=== PATIENT | male | born 1970 | race Asian ===

== ENCOUNTER 2017-03-11 13:25 | Emergency (ER) | payer OTHER ==
[~2017-03-11] VITALS: Ht 177.8 cm; Wt 68.0 kg
[~2017-03-11 13:25] MED LIST: ASPI81CT89 PO; LISI5TAB18 PO; METF100028 PO; SIMV10TA1 PO
--- NOTE | 2017-03-11 13:25 | NUR ---
Patient was BIB [place] [employer] at this time.
[2017-03-11 13:38] VITALS: BP 118/81
[2017-03-11 13:50] VITALS: BP 118/81
--- NOTE | 2017-03-11 13:50 | NUR ---
Patient discharged with v/s stable. Written and verbal after care instructions given and explained. Patient verbalized understanding. Police with in custody. All questions addressed prior to discharge. Advised to follow up with PMD.
== END 2017-03-11 13:50 ==
LOC: MED 13:25
DX: Z02.89 Encounter for other administrative examinations (principal); F10.129 Alcohol abuse with intoxication, unspecified; E11.9 Type 2 diabetes mellitus without complications; I10 Essential (primary) hypertension
CPT/HCPCS: 82948; 99283

== ENCOUNTER 2017-07-16 01:40 | Inpatient (IN) | payer OTHER ==
[~2017-07-16] VITALS: Ht 175.3 cm; Wt 66.7 kg
--- NOTE | 2017-07-16 01:48 | NUR ---
BIBA TO ER BED OF4
--- NOTE | 2017-07-16 01:50 | NUR ---
47Y M TRICE A 5150 PT. [facility] PLACED PT ON 5150 HOLD. ACCORDING TO PD PT CALLED HIS ALCOHOL ANONYMOUS MENTOR AND ASKED HIM TO KILL HIM. PT ARRIVED AT [facility] AGGITATED, UNCOOPERATIVE AND ANXIOUS. PT DENIES ANY N/V/D, SOB, CP AT THE MOMENT. MICK KOTHARI MADE AWARE
[2017-07-16 01:58] VITALS: BP 110/72
[2017-07-16] MEDS ORDERED: HALOPERIDOL IM 5 MG/ML VIAL IM ONE (02:10)
--- NOTE | 2017-07-16 02:15 | NUR ---
PATIENT APPEARS TO BE AWAKE, CRYING OUT FOR , ANXIOUS AND AGITATED. UNCOOPERATIVE WHEN PT FIRST ARRIVED AT [facility].
[2017-07-16 02:17] LABS: BASOPHILS # (AUTO) 0.3 K/uL (0.00-0.22); BASOPHILS % (AUTO) 4.8 % (0.0-2.0); EOSINOPHILS # (AUTO) 0.1 K/uL (0-0.4); EOSINOPHILS % (AUTO) 1.2 % (0.0-4.0); HEMATOCRIT 36.2 % (36-52); HEMOGLOBIN 11.7 g/dL (12.0-18.0); LYMPHOCYTES # (AUTO) 3.3 K/uL (2.0-11.5); LYMPHOCYTES % (AUTO) 45.9 % (20.5-51.1); MEAN CORPUSCULAR HEMOGLOBIN 30 pg (27-31); MEAN CORPUSCULAR HGB CONC 32 g/dL (33-37); MEAN CORPUSCULAR VOLUME 93 fL (80-94); MONOCYTES # (AUTO) 0.4 K/uL (0.8-1.0); MONOCYTES % (AUTO) 6.2 % (1.7-9.3); NEUTROPHILS # (AUTO) 2.9 K/uL (1.8-7.7); NEUTROPHILS % (AUTO) 41.9 % (42.2-75.2); PLATELET COUNT (AUTO) 261 K/uL (140-450); RED CELL DISTRIBUTION WIDTH 15.4 % (11.6-13.7)
[2017-07-16 02:18] LABS: APPEARANCE,URINE CLEAR (CLEAR); BILIRUBIN,URINE NEGATIVE (NEGATIVE); BLOOD, URINE NEGATIVE (NEGATIVE); COLOR,URINE YELLOW (YELLOW); LEUKOCYTE ESTERASE ,URINE NEGATIVE (NEGATIVE); NITRITE, URINE NEGATIVE (NEGATIVE); PH,URINE 5.5 (5.0-9.0); UGLUCOSE NEGATIVE (NEGATIVE)
[2017-07-16 02:25] LABS: BARBITURATE, URINE NEG. ng/ml (NEG <=200); BENZODIAZEPINE, URINE NEG. ng/mL (NEG <=200); CANNABINOID, URINE NEG. ng/mL (NEG <=50); COCAINE, URINE NEG. ng/mL (NEG <=300); OPIATE, URINE NEG. ng/mL (NEG <=2000); PHENCYCLIDINE SCREEN,URINE NEG. ng/mL (NEG <=25)
[2017-07-16 02:26] LABS: ANION GAP 15.3 (8-16); CARBON DIOXIDE 26.9 mmol/L (21-32); CHLORIDE 105 mmol/L (98-107); CREATININE 1.1 mg/dL (0.7-1.3); GFR ARICAN-AMERICAN 93 mL/min (>90); GLUCOSE 114 mg/dL (74-106); POTASSIUM 4.2 mmol/L (3.5-5.1); SODIUM SERUM 143 mmol/L (136-145); UREA NITROGEN, BLOOD 11 mg/dL (7-18)
[2017-07-16 02:34] LABS: ALBUMIN 4.2 g/dL (3.4-5.0); ASPARTATE AMINOTRANSFERASE 17 U/L (15-37); TOTAL BILIRUBIN 0.2 mg/dL (0.0-1.0)
[2017-07-16 02:38] LABS: SALICYLATE < 2.8 mg/dL (2.8-20.0)
[2017-07-16 02:40] LABS: ACETAMINOPHEN < 0.5 ug/ml (10-30)
[2017-07-16] MEDS ORDERED: LORazepam 2 MG/ML VIAL IM ONE (02:40)
[2017-07-16] MEDS ORDERED: NACL 0.9% 2,000 ML IV ONE (02:55)
--- NOTE | 2017-07-16 03:15 | NUR ---
PATIENT APPEARS TO BE RESTING COMFORTABLY AT THIS TIME. NO DISTRESS AT THIS TIME.
--- NOTE | 2017-07-16 04:15 | NUR ---
PATIENT APPEARS TO BE RESTING COMFORTABLY AT THIS TIME. NO DISTRESS NOTED AT THIS TIME.
--- NOTE | 2017-07-16 05:15 | NUR ---
PATIENT APPEARS TO BE RESTING COMFORTABLY AT THIS TIME. NO DISTRESS AT THIS TIME.
--- NOTE | 2017-07-16 05:53 | NUR ---
SI PAPERWORK COMPLETED AND IN PLACED IN PT CHART.
--- NOTE | 2017-07-16 05:54 | NUR ---
MOVED TO ER BED 3
--- NOTE | 2017-07-16 06:15 | NUR ---
Patient appears to be resting comfortably in bed. Vital Signs within normal limits. Respirations even and unlabored.
--- NOTE | 2017-07-16 07:05 | NUR ---
Pt report given to HELEN SELLERS. Transfer of care at this time.
--- NOTE | 2017-07-16 07:10 | NUR ---
received report from carola inman. pt resting in [facility]. nad. suicidial precaution in place.
--- NOTE | 2017-07-16 08:00 | NUR ---
Patient resting with eyes closed in [place]. Vital Signs within normal limits. Respirations even and unlabored. Suicidial precautions in place.
[2017-07-16] MEDS ORDERED: NACL 0.9% 1,000 ML IV SCH (08:39)
[2017-07-16] MEDS ORDERED: HYDROcodone/APAP 7.5/325 MG 1 TAB PO PRN (08:40)
[2017-07-16] MEDS ORDERED: ONDANSETRON 4 MG/2 ML VIAL IVP PRN (08:40)
[2017-07-16] MEDS ORDERED: ACETAMINOPHEN 325 MG TAB PO PRN (08:40)
[2017-07-16] MEDS: DOCUSATE SODIUM 100 MG GELCAP PO SCH ×2 (09:00→20:38)
[2017-07-16] MEDS: FOLIC ACID 1 MG TAB PO SCH (09:00)
[2017-07-16] MEDS: MULTIVITAMIN 1 TAB PO SCH (09:00)
[2017-07-16] MEDS: THIAMINE 100 MG TAB PO SCH (09:00)
--- NOTE | 2017-07-16 09:00 | NUR ---
Patient resting [place] eyes [place]. Vital Signs within normal limits. Respirations even and unlabored. Suicidial precautions in place.
--- NOTE | 2017-07-16 09:30 | NUR ---
CALLED PHARMACY FOR PO MEDS FOR PT; WILL FOLLOW UP
[2017-07-16 09:37] LABS: CHOL/HDL RATIO 1.7 (1-4.5); FREE T4 (FREE THYROXINE) 0.75 ng/dL (0.76-1.46); THYROID STIMULATING HORMONE 2.05 uIU/mL (0.34-3.74)
--- NOTE | 2017-07-16 09:58 | NUR ---
ADMINISTERED IVF OF NS 0.9% AT A RATE OF 50 CC/ML PER MD ORDER ON EMAR; UNABLE TO DOCUMATE IN EMAR; MD FINN NOTIFIED AND AWARE; WILL CONTINUE TO MONITOR
--- NOTE | 2017-07-16 10:00 | NUR ---
PT REFUSING PO MEDS; PT STATES "LEAVE ME THE FUCK ALONE"; MD FINN NOTIFIED AND AWARE WILL CONTINUE TO MONITOR; RR ARE EVEN AND UNLABORED; NAD; VSS
--- NOTE | 2017-07-16 10:01 | NUR ---
Patient resting with eyes closed in [place]. Vital Signs within normal limits. Respirations even and unlabored. Suicidial precautions in place.
[2017-07-16] MEDS ORDERED: DEXTROSE 50% 50 ML SYR IVP PRN (10:05)
[2017-07-16] MEDS ORDERED: INSULIN LISPRO SLIDING SCALE 100 UNITS/ML VIAL SUBQ PRN (10:05)
--- NOTE | 2017-07-16 10:05 | NUR ---
MD FINN AND MD THORPE BY BEDSIDE EXAMINING PT
--- NOTE | 2017-07-16 11:00 | NUR ---
Patient resting with eyes closed in [place]. Vital Signs within normal limits. Respirations even and unlabored. Suicidial precautions in place.
--- NOTE | 2017-07-16 12:00 | NUR ---
Patient resting [place] eyes [place] in [place]. Vital Signs within normal limits. Respirations even and unlabored. Suicidial precautions in place.
--- NOTE | 2017-07-16 13:00 | NUR ---
PATIENT APPEARS TO BE RESTING COMFORTABLY AT THIS TIME. NO DISTRESS AT THIS TIME. SUICIDIAL PRECAUTIONS IN PLACE. NAD. WILL CONTINUE TO MONITOR
--- NOTE | 2017-07-16 13:30 | NUR ---
PT GIVEN 1MG OF ATIVAN PO PER MD ORDER; UNABLE TO CHART IN EMAR
[2017-07-16] MEDS ORDERED: LORazepam 1 MG TAB ONE (13:38)
--- NOTE | 2017-07-16 14:00 | NUR ---
PATIENT APPEARS TO BE RESTING COMFORTABLY AT THIS TIME. NO DISTRESS AT THIS TIME. SUICIDIAL PRECAUTIONS IN PLACE. NAD. WILL CONTINUE TO MONITOR
[2017-07-16] MEDS ORDERED: LORazepam 2 MG/ML VIAL IVP PRN (14:34)
--- NOTE | 2017-07-16 15:00 | NUR ---
PATIENT APPEARS TO BE RESTING COMFORTABLY AT THIS TIME. NO DISTRESS AT THIS TIME. SUICIDIAL PRECAUTIONS IN PLACE. NAD. WILL CONTINUE TO MONITOR
--- NOTE | 2017-07-16 15:11 | NUR ---
Patient will be admitted to care of Sam. Admited to Tele. Will go to room 108B. Belongings list completed. Report to
--- NOTE | 2017-07-16 15:40 | NUR ---
Patient's Plan of Care was discussed and reviewed with BARREL DEDENTING MACHINE OPERATOR: MARILEE Pollock
--- NOTE | 2017-07-16 15:40 | NUR ---
ADMITTED FROM ER VIA GURNEY. AWAKE, ALERT, AND ORIENTED X2. SPEECH CLEAR. NO C/O PAIN. NO ACUTE DISTRESS NOTED. KEEP COMFORTABLE ON BED. KEEP ENVIRONMENT SAFE. NO SUICIDAL THOUGHTS NOTICED. LIMITED MEDICAL INFORMATION GATHERED FROM PT. FOR ADMISSION PROCESS DUE TO PT. NON-COOPERATIVE BEHAVIOR. CLOSELY WATCHED BY SITTER 1:1 JAYLYN. CALL LIGHT WITHIN REACH.
[2017-07-16 16:00] VITALS: BP 129/74
[2017-07-16] MEDS: BLOOD GLUCOSE MONITORING 1 DEV DEV FS SCH ×2 (16:30→20:39)
--- NOTE | 2017-07-16 17:17 | NUR ---
DR. WHITE CAME, SEEN PT. AND CHECKED PT. CHART.
[2017-07-16] MEDS: metFORMIN 500 MG TAB PO SCH (17:24)
--- NOTE | 2017-07-16 19:16 | NUR ---
BEDSIDE REPORT GIVEN TO XIMENA ANTON -MARLO. RESTING ON BED COMFORTABLY. IN STABLE CONDITION.
--- NOTE | 2017-07-16 19:17 | NUR ---
RECEIVED REPORT FROM AM NURSE. PT IS AOX2, BUT IS GUARDED AND SPEAKS WHEN ASKED A QUESTION. WITH RESPIRATIONS CLEAR AND UNLABORED, NO COMPLAINTS OF PAIN. NO SUICIDAL THOUGHTS NOTICED. WITH AN IV TO THE RIGHT FA 2O G, SALINE LOCKED, INTACT AND PATENT - FLUSHED WITH NS 10 ML. WILL CONTINUE TO MONITOR. ALL NEEDS ATTENDED. CALL LIGHT WITHIN REACH. SAFETY CHECKS IN PLACE.
[2017-07-16 20:00] VITALS: BP 127/82
[2017-07-16] MEDS: LORazepam 1 MG TAB PO SCH (20:39)
--- NOTE | 2017-07-16 20:39 | NUR ---
DUE MEDS GIVEN, WELL TOLERATED BY PT. WILL CONTINUE TO MONITOR FOR ANY CHANGES.
[2017-07-16] MEDS ORDERED: SIMVASTATIN 10 MG TAB PO SCH (21:00)
[2017-07-16] MEDS ORDERED: METFORMIN HYDROCHLORIDE 1000 MG PO SCH (21:00)
[2017-07-17] VITALS: BP 113/65
--- NOTE | 2017-07-17 | NUR ---
VITALS STABLE. NO S/S OF DISTRESS. NO COMPLAINTS OF PAIN. WILL CONTINUE TO MONITOR FOR ANY CHANGES.
[2017-07-17 04:00] VITALS: BP 116/70
[2017-07-17] MEDS: LORazepam 1 MG TAB PO SCH ×2 (04:36→12:09)
--- NOTE | 2017-07-17 04:38 | NUR ---
VITALS STABLE. NO S/S OF DISTRESS. DUE MEDS WERE GIVEN, WELL TOLERATED BY PT. WILL CONTINUE TO MONITOR. ALL NEEDS ATTENDED. CALL LIGHT WITHIN REACH. SAFETY CHECKS IN PLACE.
[2017-07-17] MEDS: BLOOD GLUCOSE MONITORING 1 DEV DEV FS SCH ×3 (06:30→16:19)
--- NOTE | 2017-07-17 06:30 | NUR ---
CHECKED BLOOD SUGAR, NO INSULIN COVERAGE NEEDED.
[2017-07-17 06:45] LABS: HEMATOCRIT 35.1 % (36-52); HEMOGLOBIN 11.6 g/dL (12.0-18.0); MEAN CORPUSCULAR HEMOGLOBIN 31 pg (27-31); MEAN CORPUSCULAR HGB CONC 33 g/dL (33-37); MEAN CORPUSCULAR VOLUME 92 fL (80-94); PLATELET COUNT (AUTO) 227 K/uL (140-450); RED CELL DISTRIBUTION WIDTH 14.8 % (11.6-13.7); WHITE BLOOD COUNT (AUTO) 5.6 K/uL (4.8-10.8)
[2017-07-17 06:49] LABS: CREATININE 0.9 mg/dL (0.7-1.3)
[2017-07-17 06:53] LABS: MAGNESIUM 1.1 mg/dL (1.8-2.4); PHOSPHORUS 4.1 mg/dL (2.5-4.9)
[2017-07-17 07:02] LABS: POTASSIUM 4.5 mmol/L (3.5-5.1)
--- NOTE | 2017-07-17 07:02 | NUR ---
ENDORSED TO AM SHIFT NURSE FOR CONTINUITY OF CARE, IN STABLE CONDITION.
--- NOTE | 2017-07-17 07:02 | NUR ---
RECEIVED REPORT FROM NIGHT NURSE, PT IS AAOX2, ON ROOM AIR IV TO RIGHT FA 20G SALINE LOCK PATENT AND INTACT, SKIN INTACT, INITIAL ASSESSMENT COMPLETED, REVIEW PLAN OF CARE WITH PT, PT VERBALIZED UNDERSTANDING, ALL SEFETY PRECAUTIONS MET, CALL LIGHT WITHIN REACH, WILL CONTINUE TO MONITOR.
[2017-07-17 07:09] LABS: ANION GAP 18.4 (8-16); CARBON DIOXIDE 24.1 mmol/L (21-32)
[2017-07-17 08:00] VITALS: BP 123/70
--- NOTE | 2017-07-17 08:14 | NUR ---
PATIENT HAS BEEN SCREENED AND CATEGORIZED MODERATE NUTRITION RISK. PATIENT WILL BE SEEN WITHIN 3-5 DAYS OF ADMISSION. 07/18/17-07/20/[address]
[2017-07-17 08:17] LABS: LYMPHOCYTES % (MANUAL) 45 % (20-46)
[2017-07-17 08:18] LABS: EOSINOPHILS % (MANUAL) 3 % (0-4); MONOCYTES % (MANUAL) 10 % (5-12)
[2017-07-17] MEDS: metFORMIN 500 MG TAB PO SCH ×2 (08:47→17:15)
[2017-07-17] MEDS: DOCUSATE SODIUM 100 MG GELCAP PO SCH (08:47)
[2017-07-17] MEDS: FOLIC ACID 1 MG TAB PO SCH (08:47)
[2017-07-17] MEDS: MULTIVITAMIN 1 TAB PO SCH (08:47)
[2017-07-17] MEDS: THIAMINE 100 MG TAB PO SCH (08:47)
--- NOTE | 2017-07-17 08:49 | NUR ---
DUE MEDICATIONS GIVEN, PT TOLERATED WELL. ZESTRIL NOT GIVEN BP WNL. ALL NEEDS MET. WILL CONTINUE TO MONITOR.
[2017-07-17] MEDS ORDERED: LISINOPRIL 5 MG TAB PO SCH (09:00)
[2017-07-17] MEDS ORDERED: ASPIRIN 81 MG TAB.CHEW PO SCH (09:00)
[2017-07-17] MEDS: MAG SULF 2000 MG/WATER PREMIX 50 ML IV SCH ×2 (09:39→11:50)
--- NOTE | 2017-07-17 10:20 | NUR ---
CM NOTE SPOKE WITH LATRICE Tabares OF [facility] [phone] DEPT AND SHE SAID REVIEWS SHOULD BE SENT TO [facility]OTH [facility] AND [facility]. INITIAL REVIEW FAXED TO [facility] [phone] AND TO [facility] [phone] Addendum: 07/17/17 at 1156 by Viviana Avalos RECEIVED FAX FROM [facility] STATING THIS ADMISSION'S REF# [id number]
--- NOTE | 2017-07-17 11:45 | NUR ---
PT RESTING IN BED, NO S/S OF DISTRESS NOTED. ALL NEEDS MET. ALL SAFETY PRECAUTIONS MET.
[2017-07-17 11:59] VITALS: BP 116/75
--- NOTE | 2017-07-17 12:45 | NUR ---
Social Service Note: I met with patient at bedside. Per patient, he currently goes to A.A. meetings. I provided him with a list of alcohol/substance treatment programs. He was appreciative. He stated he did not need any additional community resources.
--- NOTE | 2017-07-17 14:26 | NUR ---
PT CURRENTLY SLEEPING AWAKENS TO NAME, NO S/S OF DISTRESS NOTED. ALL SAFETY PRECAUTIONS MET, WILL CONTINUE TO MONITOR.
--- NOTE | 2017-07-17 15:45 | NUR ---
DISCUSSED DISCHARGE PLAN WITH PT, PT VERBALIZED UNDERSTANDING.
[2017-07-17 16:00] VITALS: BP 130/77
--- NOTE | 2017-07-17 17:16 | NUR ---
DUE MEDICATIONS GIVEN. PT RESTING IN BED. ALL NEEDS MET. WILL CONTINUE TO MONITOR.
--- NOTE | 2017-07-17 17:50 | NUR ---
PT SIGNED ALL DISCHARGE PAPERWORK, DISCHARGE EDUCATION GIVEN, FOLLOW UP INFORMATION GIVEN, ALL PERSONAL BELONGINGS WITH PT, IV REMOVED TIP INTACT, BUS PASS PROVIDED.
--- NOTE | 2017-07-17 18:09 | NUR ---
PT WAS WHEELED OUT TO FRONT LOBBY IN STABLE CONDITION.
== END 2017-07-17 18:10 | disposition home or self-care (01) | DRG 896 ==
LOC: MED 01:40 → MTU 08:45
PROVIDERS: ADMIT Family Medicine; ATTEND Family Medicine
DX: F10.229 Alcohol dependence with intoxication, unspecified (principal); G92 Toxic encephalopathy; D68.59 Other primary thrombophilia; R45.851 Suicidal ideations; F33.2 Major depressive disorder, recurrent severe without psychotic features; E83.42 Hypomagnesemia; E11.51 Type 2 diabetes mellitus with diabetic peripheral angiopathy without gangrene; R44.2 Other hallucinations; I10 Essential (primary) hypertension; D64.9 Anemia, unspecified; E78.5 Hyperlipidemia, unspecified; F41.9 Anxiety disorder, unspecified; Y90.8 Blood alcohol level of 240 mg/100 ml or more; Z91.018 Allergy to other foods; Z56.0 Unemployment, unspecified; Z63.9 Problem related to primary support group, unspecified; Z91.19 Patient's noncompliance with other medical treatment and regimen; Z79.899 Other long term (current) drug therapy
CPT/HCPCS: 36415; 71010; 80048; 80053; 80305; 81003; 82140; 82150; 82948; 83036; 83605; 83690; 83735; 83880; 84100; 84439; 84443; 84484; 85025; 85610; 85730; 87040; 87081; 93005; 96360; 96372; 99285; G0480; G0482; J1630; J1815; J2060; J3475; J7030; Q0092

== ENCOUNTER 2018-08-30 13:35 | Emergency (ER) | payer OTHER ==
[~2018-08-30] VITALS: Ht 177.8 cm; Wt 68.3 kg
[2018-08-30 13:40] VITALS: BP 117/66
--- NOTE | 2018-08-30 13:50 | NUR ---
PT AMBULATES TO BED 12
--- NOTE | 2018-08-30 13:59 | NUR ---
48 Y/O M W/C/O ABDOMINAL PAIN WITH VOMITING SINCE YESTERDAY; PT STATES N/V; SKIN IS PINK/WARM/DRY; AAOX4, PERRL, WITH EVEN AND STEADY GAIT; LUNGS CLEAR BL, BREATHING UNLABORED; HR EVEN AND REGULAR, BL PERIPHERAL PULSES PRESENT; BS ACTIVE X4, NO TENDERNESS TO PALPATION, NO HEPATOSPLENOMEGALLY PALPATED, RESONANT TO PERCUSSION; PT DENIES ANY FEVER, CP, SOB, OR COUGH AT THIS TIME; PT STATES 8/10 PAIN AT THIS TIME; VSS; PATIENT POSITIONED FOR COMFORT; HOB ELEVATED; BEDRAILS UP X2; BED DOWN.
[2018-08-30] MEDS ORDERED: NACL 0.9% 1,000 ML IV SCH (14:26)
[2018-08-30] MEDS ORDERED: MORPHINE SULFATE 4 MG/ML SYR IVP ONE (14:30)
[2018-08-30] MEDS ORDERED: NACL 0.9% 1,000 ML IV ONE (14:30)
[2018-08-30] MEDS ORDERED: ONDANSETRON 4 MG/2 ML VIAL IVP ONE (14:30)
[2018-08-30] MEDS ORDERED: PANTOPRAZOLE 40 MG INJ VIAL IVP ONE (14:30)
--- NOTE | 2018-08-30 14:30 | NUR ---
patient comfortable. no needs at this time.
[2018-08-30 14:55] LABS: BASOPHILS % (AUTO) 0.4 % (0.0-2.0); EOSINOPHILS % (AUTO) 0.6 % (0.0-4.0); HEMATOCRIT 45.9 % (36-52); HEMOGLOBIN 15.4 g/dL (12.0-18.0); LYMPHOCYTES # (AUTO) 1.8 K/uL (2.0-11.5); LYMPHOCYTES % (AUTO) 31.6 % (20.5-51.1); MEAN CORPUSCULAR HEMOGLOBIN 30 pg (27-31); MEAN CORPUSCULAR HGB CONC 34 g/dL (33-37); MONOCYTES # (AUTO) 0.6 K/uL (0.8-1.0); MONOCYTES % (AUTO) 10.7 % (1.7-9.3); NEUTROPHILS # (AUTO) 3.3 K/uL (1.8-7.7); NEUTROPHILS % (AUTO) 56.7 % (42.2-75.2); PLATELET COUNT (AUTO) 254 K/uL (140-450); RED BLOOD CELL COUNT(AUTO) 5.15 MIL/uL (4.20-6.10); RED CELL DISTRIBUTION WIDTH 15.5 % (11.6-13.7); WHITE BLOOD COUNT (AUTO) 5.8 K/uL (4.8-10.8)
[2018-08-30 15:05] LABS: APPEARANCE,URINE CLEAR (CLEAR); BILIRUBIN,URINE NEGATIVE (NEGATIVE); BLOOD, URINE NEGATIVE (NEGATIVE); COLOR,URINE YELLOW (YELLOW); LEUKOCYTE ESTERASE ,URINE NEGATIVE (NEGATIVE); NITRITE, URINE NEGATIVE (NEGATIVE); UGLUCOSE NEGATIVE (NEGATIVE)
[2018-08-30 15:10] LABS: ANION GAP 14.1 (8-16); CARBON DIOXIDE 29.3 mmol/L (21-32); CREATININE 1.1 mg/dL (0.7-1.3); POTASSIUM 4.4 mmol/L (3.5-5.1)
[2018-08-30 15:24] LABS: ALBUMIN 4.4 g/dL (3.4-5.0); TOTAL BILIRUBIN 0.4 mg/dL (0.0-1.0)
--- NOTE | 2018-08-30 16:10 | NUR ---
Patient discharged with v/s stable. Written and verbal after care instructions given and explained. Patient alert, oriented and verbalized understanding of instructions. Ambulatory with steady gait. All questions addressed prior to discharge. ID band removed. Patient advised to follow up with PMD. Rx of zofran, protonix given. Patient educated on indication of medication including possible reaction and side effects. Opportunity to ask questions provided and answered.
[2018-08-30 16:11] VITALS: BP 115/68
== END 2018-08-30 16:10 | disposition home or self-care (01) ==
LOC: MED 13:35
DX: K52.89 Other specified noninfective gastroenteritis and colitis (principal); F10.129 Alcohol abuse with intoxication, unspecified; E11.9 Type 2 diabetes mellitus without complications; I10 Essential (primary) hypertension; Z91.018 Allergy to other foods; Z79.82 Long term (current) use of aspirin; Z79.899 Other long term (current) drug therapy; Z79.84 Long term (current) use of oral hypoglycemic drugs
CPT/HCPCS: 36415; 80053; 81003; 83690; 84484; 85025; 93005; 96361; 96374; 96375; 99285; C9113; G0482; J2270; J2405; 99284

== ENCOUNTER 2018-10-08 16:36 | Emergency (ER) | payer OTHER ==
[~2018-10-08] VITALS: Ht 172.7 cm; Wt 68.0 kg
--- NOTE | 2018-10-08 16:36 | NUR ---
Patient transferred to bed 7 via wheelchair by tech. RN evaluating patient at bedside.
[2018-10-08 16:40] VITALS: BP 137/88
--- NOTE | 2018-10-08 16:45 | NUR ---
48/ M BIB SELF, C/O OF EXACERBATED RIGHT KNEE PAIN RAN INTO FURNITURE X10 DAYS AGO, RULL RANGE OF MOTION. NO OBVIOUS INJURY NOTED. PATIENT STATES INJURED KNEE A CHILD. SLOW TO RESPOND ADMITS TO ETOH USE TODAY. PATIENT STATES HE DRANK 6 PACK. HX: DM, HTN, HYPERLIPIDEMIA, AND DEPRESSION RX: METFORMIN, LISINOPRIL, AND SIMVASTATIN
--- NOTE | 2018-10-08 16:55 | NUR ---
PATIENT REFUSED TO REMOVE PANTS.
--- NOTE | 2018-10-08 17:07 | NUR ---
Dr. Aly evaluating patient at bedside.
[2018-10-08] MEDS ORDERED: FAMOTIDINE 20 MG TAB PO ONE (17:15)
[2018-10-08] MEDS ORDERED: ACETAMINOPHEN 325 MG TAB PO ONE (17:15)
--- NOTE | 2018-10-08 17:18 | NUR ---
XRAY AT BEDSIDE.
--- NOTE | 2018-10-08 17:24 | NUR ---
PT WALKED THROUGH NURSE'S STATION, STATED HE IS GOING HOME. KENYETTA SELLERSTRAFFIC SERGEANT ASKED PT WHY IS HE LEAVING? PT GOT ON HIS CELL PHONE AND REFUSED TO ANSWER. AMBULATED OUT OF ER WITH STEADY GAIT. NOTIFIED
== END 2018-10-08 17:24 | disposition left against medical advice (07) ==
LOC: MED 16:41
DX: M25.561 Pain in right knee (principal); F10.10 Alcohol abuse, uncomplicated; R10.10 Upper abdominal pain, unspecified; E11.9 Type 2 diabetes mellitus without complications; I10 Essential (primary) hypertension; Z91.018 Allergy to other foods; Z79.84 Long term (current) use of oral hypoglycemic drugs; Z79.899 Other long term (current) drug therapy; Z79.82 Long term (current) use of aspirin
CPT/HCPCS: 73562; 99283; Q0092

== ENCOUNTER 2018-10-18 13:14 | Emergency (ER) | payer OTHER ==
[~2018-10-18] VITALS: Ht 170.2 cm; Wt 68.0 kg
[2018-10-18 13:45] VITALS: BP 121/59
--- NOTE | 2018-10-18 14:21 | NUR ---
wheel chair assisted to bed 3
[2018-10-18 14:24] VITALS: BP 120/64
--- NOTE | 2018-10-18 14:24 | NUR ---
Pt. arrived to the ED w/ c/o rt knee pain worse the last wk unable to ambulate; eloped on 10/08/2018 after xray -fx, question of small joint effusion; no current injury; had injured rt knee when he was a child. 08/07 sharp non radiating pain rt knee. no swelling or deformity noted. RR even and unlabored. VSS. Cap Refill less than 3 sec. Will continue to monitor. Safety Precautions implemented. ER MD made aware. Wheelchair Assisted to bed
[2018-10-18] MEDS ORDERED: KETOROLAC 60 MG/2 ML VIAL IM ONE (14:40)
[2018-10-18] MEDS ORDERED: traMADol 50 MG TAB PO ONE (14:40)
--- NOTE | 2018-10-18 15:07 | NUR ---
Pt. left without d/c instructions or ortho Immobilizer. Pt. walked with steady gait to door. Charge Nurse MARLO Zamorano made aware.
--- NOTE | 2018-10-18 15:07 | NUR ---
Note con in EDM - 10/18/18 at 1523 by DANI Pt. left without d/c instructions or ortho Immobilizer. Pt. walked with steady gait to door and left, stated " I do not want to stay". Charge Nurse MARLO Zamorano made aware.
== END 2018-10-18 15:07 | disposition home or self-care (01) ==
LOC: MED 13:14
DX: S83.91XA Sprain of unspecified site of right knee, initial encounter (principal); M17.11 Unilateral primary osteoarthritis, right knee; E11.9 Type 2 diabetes mellitus without complications; I10 Essential (primary) hypertension; Z91.018 Allergy to other foods; Z79.84 Long term (current) use of oral hypoglycemic drugs; Z79.82 Long term (current) use of aspirin; Z79.899 Other long term (current) drug therapy; X58.XXXA Exposure to other specified factors, initial encounter; Y93.89 Activity, other specified; Y92.89 Other specified places as the place of occurrence of the external cause; Y99.8 Other external cause status
CPT/HCPCS: 96372; 99283; J1885

== ENCOUNTER 2018-10-25 14:53 | Emergency (ER) | payer OTHER ==
[~2018-10-25] VITALS: Ht 177.8 cm; Wt 63.5 kg
[2018-10-25 15:21] VITALS: BP 108/66
[2018-10-25] MEDS ORDERED: MONT10TA35 PO (15:37)
[2018-10-25] MEDS ORDERED: IBUPROFEN 600 MG TAB PO ONE (15:55)
[2018-10-25 16:34] LABS: BASOPHILS % (AUTO) 0.9 % (0.0-2.0); EOSINOPHILS # (AUTO) 0.1 K/uL (0-0.4); EOSINOPHILS % (AUTO) 1.7 % (0.0-4.0); HEMATOCRIT 44.2 % (36-52); HEMOGLOBIN 14.3 g/dL (12.0-18.0); LYMPHOCYTES % (AUTO) 41.1 % (20.5-51.1); MEAN CORPUSCULAR HEMOGLOBIN 30 pg (27-31); MEAN CORPUSCULAR HGB CONC 32 g/dL (33-37); MEAN CORPUSCULAR VOLUME 91.4 fL (80-94); MONOCYTES # (AUTO) 0.4 K/uL (0.8-1.0); MONOCYTES % (AUTO) 7.6 % (1.7-9.3); NEUTROPHILS # (AUTO) 2.3 K/uL (1.8-7.7); NEUTROPHILS % (AUTO) 48.7 % (42.2-75.2); PLATELET COUNT (AUTO) 276 K/uL (140-450); RED BLOOD CELL COUNT(AUTO) 4.84 MIL/uL (4.20-6.10); RED CELL DISTRIBUTION WIDTH 16.7 % (11.6-13.7); WHITE BLOOD COUNT (AUTO) 4.8 K/uL (4.8-10.8)
[2018-10-25 16:49] LABS: APPEARANCE,URINE CLEAR (CLEAR); BILIRUBIN,URINE NEGATIVE (NEGATIVE); BLOOD, URINE NEGATIVE (NEGATIVE); COLOR,URINE YELLOW (YELLOW); LEUKOCYTE ESTERASE ,URINE NEGATIVE (NEGATIVE); NITRITE, URINE NEGATIVE (NEGATIVE); UGLUCOSE 3+ (NEGATIVE)
[2018-10-25 16:58] LABS: ANION GAP 18.7 (8-16); CARBON DIOXIDE 24.3 mmol/L (21-32); CHLORIDE 99 mmol/L (98-107); CREATININE 1.1 mg/dL (0.7-1.3); GFR ARICAN-AMERICAN 93 mL/min (>90); GLUCOSE 284 mg/dL (74-106); SODIUM SERUM 138 mmol/L (136-145); UREA NITROGEN, BLOOD 5 mg/dL (7-18)
[2018-10-25 17:02] LABS: BARBITURATE, URINE NEG. ng/ml (NEG <=200); BENZODIAZEPINE, URINE NEG. ng/mL (NEG <=200); CANNABINOID, URINE NEG. ng/mL (NEG <=50); COCAINE, URINE NEG. ng/mL (NEG <=300); OPIATE, URINE NEG. ng/mL (NEG <=2000); PHENCYCLIDINE SCREEN,URINE NEG. ng/mL (NEG <=25)
[2018-10-25 17:03] LABS: ALBUMIN 4.2 g/dL (3.4-5.0); ASPARTATE AMINOTRANSFERASE 16 U/L (15-37); TOTAL BILIRUBIN 0.2 mg/dL (0.0-1.0)
[2018-10-25 17:11] LABS: ACETAMINOPHEN < 0.5 ug/ml (10-30); SALICYLATE < 2.8 mg/dL (2.8-20.0)
[2018-10-25] MEDS ORDERED: NACL 0.9% 1,000 ML IV ONE (20:15)
[2018-10-25 21:25] VITALS: BP 122/76
== END 2018-10-25 21:25 | disposition home or self-care (01) ==
LOC: MED 14:53
DX: F10.129 Alcohol abuse with intoxication, unspecified (principal); F32.9 Major depressive disorder, single episode, unspecified; E11.9 Type 2 diabetes mellitus without complications; I10 Essential (primary) hypertension; F20.9 Schizophrenia, unspecified; Z79.84 Long term (current) use of oral hypoglycemic drugs; Z79.82 Long term (current) use of aspirin; Z79.899 Other long term (current) drug therapy; Z91.018 Allergy to other foods
CPT/HCPCS: 36415; 80053; 80305; 81003; 84484; 85025; 99283; G0480; G0482

== ENCOUNTER 2018-10-27 18:18 | Emergency (ER) | payer OTHER ==
[~2018-10-27] VITALS: Ht 170.2 cm; Wt 63.5 kg
[~2018-10-27 18:18] MED LIST changes: +MONT10TA35 PO
[2018-10-27 18:23] VITALS: BP 144/90
--- NOTE | 2018-10-27 18:25 | NUR ---
PT TO MICK GARCIA , WAIT FOR AVAILABLE ROOM FOR MD HEIN
--- NOTE | 2018-10-27 18:30 | NUR ---
PT AMBULATED OUT OF ER LOBBY----NO ANSWER
== END 2018-10-27 18:30 | disposition left against medical advice (07) ==
LOC: MED 18:18
DX: M25.561 Pain in right knee (principal); Z53.21 Procedure and treatment not carried out due to patient leaving prior to being seen by health care provider

== ENCOUNTER 2018-12-14 16:32 | Emergency (ER) | payer OTHER ==
[~2018-12-14] VITALS: Ht 170.2 cm; Wt 74.8 kg
[~2018-12-14 16:32] MED LIST changes: +ASPI-1718 PO; -ASPI81CT89 PO
--- NOTE | 2018-12-14 16:32 | NUR ---
AGNES SERRANO, CURRENTLY AWAITING BED
[2018-12-14 16:35] VITALS: BP 118/84
--- NOTE | 2018-12-14 16:45 | NUR ---
48/M BIBA FROM HOME C/O R KNEE PAIN. PER EMS, PT HAS CHRONIC COMPLAINT OF R KNEE PAIN. DENIES TX/INURY, NO OBVIOUS DEFORMITY.PATIENT STATES PAIN OF 08/07 AT THIS TIME. PATIENT POSITIONED FOR COMFORT; HOB ELEVATED; BEDRAILS UP X2; BED DOWN. MICK KOTHARI MADE AWARE OF PT STATUS. Addendum: 12/14/18 at 1647 by [facility] HX: DM,HTN.
[2018-12-14] MEDS ORDERED: NACL 0.9% 1,000 ML IV ONE (16:50)
[2018-12-14 17:24] LABS: BASOPHILS # (AUTO) 0.1 K/uL (0.00-0.22); BASOPHILS % (AUTO) 2.6 % (0.0-2.0); EOSINOPHILS % (AUTO) 0.2 % (0.0-4.0); HEMATOCRIT 43.3 % (36-52); HEMOGLOBIN 14.5 g/dL (12.0-18.0); LYMPHOCYTES # (AUTO) 1.4 K/uL (2.0-11.5); LYMPHOCYTES % (AUTO) 38.3 % (20.5-51.1); MEAN CORPUSCULAR HEMOGLOBIN 31 pg (27-31); MEAN CORPUSCULAR HGB CONC 34 g/dL (33-37); MEAN CORPUSCULAR VOLUME 92.9 fL (80-94); MONOCYTES # (AUTO) 0.4 K/uL (0.8-1.0); MONOCYTES % (AUTO) 10.9 % (1.7-9.3); NEUTROPHILS # (AUTO) 1.8 K/uL (1.8-7.7); PLATELET COUNT (AUTO) 296 K/uL (140-450); RED BLOOD CELL COUNT(AUTO) 4.66 MIL/uL (4.20-6.10); RED CELL DISTRIBUTION WIDTH 15.4 % (11.6-13.7); WHITE BLOOD COUNT (AUTO) 3.7 K/uL (4.8-10.8)
[2018-12-14 17:36] LABS: ANION GAP 11.7 (8-16); CARBON DIOXIDE 28.1 mmol/L (21-32); CHLORIDE 100 mmol/L (98-107); CREATININE 1.1 mg/dL (0.7-1.3); GFR ARICAN-AMERICAN 93 mL/min (>90); GLUCOSE 327 mg/dL (74-106); POTASSIUM 3.8 mmol/L (3.5-5.1); SODIUM SERUM 136 mmol/L (136-145); UREA NITROGEN, BLOOD 12 mg/dL (7-18)
[2018-12-14 17:48] LABS: ALBUMIN 4.1 g/dL (3.4-5.0); ASPARTATE AMINOTRANSFERASE 34 U/L (15-37); TOTAL BILIRUBIN 0.5 mg/dL (0.0-1.0)
[2018-12-14 17:50] LABS: SALICYLATE < 2.8 mg/dL (2.8-20.0)
[2018-12-14 17:58] LABS: BARBITURATE, URINE NEG. ng/ml (NEG <=200); BENZODIAZEPINE, URINE NEG. ng/mL (NEG <=200); CANNABINOID, URINE NEG. ng/mL (NEG <=50); COCAINE, URINE NEG. ng/mL (NEG <=300); OPIATE, URINE NEG. ng/mL (NEG <=2000); PHENCYCLIDINE SCREEN,URINE NEG. ng/mL (NEG <=25)
[2018-12-14 17:58] LABS: ACETAMINOPHEN < 0.5 ug/ml (10-30)
--- NOTE | 2018-12-14 19:02 | NUR ---
[facility] [phone]
--- NOTE | 2018-12-14 19:09 | NUR ---
Pt report given to ELEAZAR SELLERS. Transfer of care at this time.
--- NOTE | 2018-12-14 19:09 | NUR ---
REPORT RECIEVED FROM SAI SELLERS
--- NOTE | 2018-12-14 20:00 | NUR ---
PT ON BED IN SUPINE POSITION EYES OPEN, RESPIS E/U, NO COMPLAINTS OF CP/SOB AT THIS TIME.
--- NOTE | 2018-12-14 20:56 | NUR ---
called and refused to pick patient up, edmd made aware.
--- NOTE | 2018-12-14 21:03 | NUR ---
pt ambulated 50 ft with steady gait.
--- NOTE | 2018-12-14 21:20 | NUR ---
PT MOVED TO E AT THIS TIME
[2018-12-14 21:43] VITALS: BP 125/78
--- NOTE | 2018-12-14 21:43 | NUR ---
Patient discharged with v/s stable. Written and verbal after care instructions given and explained. Patient verbalized understanding. Ambulatory with steady gait. All questions addressed prior to discharge. Advised to follow up with PMD. PER EDMD PATIENT STABLE TO LEAVE IN [place] AT THIS TIME.
== END 2018-12-14 21:43 | disposition home or self-care (01) ==
LOC: MED 16:32
DX: F10.129 Alcohol abuse with intoxication, unspecified (principal); M25.561 Pain in right knee; E11.9 Type 2 diabetes mellitus without complications; I10 Essential (primary) hypertension; Z79.82 Long term (current) use of aspirin; Z79.84 Long term (current) use of oral hypoglycemic drugs; Z79.899 Other long term (current) drug therapy; Z91.018 Allergy to other foods; Y90.8 Blood alcohol level of 240 mg/100 ml or more
CPT/HCPCS: 36415; 73562; 80053; 80305; 85025; 93005; 99284; G0480; G0482; J7030; Q0092

== ENCOUNTER 2018-12-23 13:48 | Emergency (ER) | payer OTHER ==
[~2018-12-23] VITALS: Ht 177.8 cm; Wt 65.8 kg
--- NOTE | 2018-12-23 13:49 | NUR ---
AGNES SERRANO, CURRENTLY AWAITING BED
[2018-12-23 13:50] VITALS: BP 106/68
--- NOTE | 2018-12-23 14:06 | NUR ---
PT TAKEN TO BED 2 VIA WHEELCHAIR
--- NOTE | 2018-12-23 14:14 | NUR ---
48 Y/O M PRESENTS TO THE ED BIBA W/ RT. KNEE PAIN SINCE HE WAS 16 YRS OLD. +CMS. DENIES RESENT INJURY OR TRAUMA. PER PATIENT, HE TAKES TRAMADOL NO RELIEF. PT DENIES N/V/D; SKIN IS INTACT, PINK/WARM/DRY; AAOX4, PERRL; LUNGS CLEAR BL, BREATHING UNLABORED; HR EVEN AND REGULAR, BL PERIPHERAL PULSES PRESENT; PT DENIES ANY FEVER, CP, SOB, OR COUGH AT THIS TIME; PT STATES 8/10 PAIN AT THIS TIME; VSS; PATIENT POSITIONED FOR COMFORT; HOB ELEVATED; BEDRAILS UP X2; BED DOWN. HX: DM . TAKES TRAMADOL AND METFORMIN 1000MG BID PO. BS 246
--- NOTE | 2018-12-23 14:23 | NUR ---
PT LEFT ER AT THIS TIME WITHOUT BEING SEEN BY PROVIDER
--- NOTE | 2018-12-23 14:24 | NUR ---
PT STATED HE IS LEAVING AT THIS TIME, "NO ONE CAN STOP ME." PT AMUBLATED WITH STEADY GAIT. DR. WILSON MADE AWARE.
== END 2018-12-23 14:24 | disposition left against medical advice (07) ==
LOC: MED 13:48
DX: M25.561 Pain in right knee (principal); Z53.21 Procedure and treatment not carried out due to patient leaving prior to being seen by health care provider
CPT/HCPCS: 73562; 99281; Q0092

== ENCOUNTER 2018-12-23 19:11 | Emergency (ER) | payer OTHER ==
[~2018-12-23] VITALS: Ht 177.8 cm; Wt 79.4 kg
[2018-12-23 19:15] VITALS: BP 128/87
[2018-12-23] MEDS ORDERED: NACL 0.9% 1,000 ML IV ONE (19:30)
[2018-12-23] MEDS ORDERED: KETOROLAC 30 MG/ML VIAL IVP ONE (19:35)
--- NOTE | 2018-12-23 20:17 | NUR ---
PT REQUESTING FOOD, FOOD PROVIDED TO PT. PT IS YELLING AND SCREAMING FOR HIS MOTHER, SECURITY AT BEDSIDE.
[2018-12-23] MEDS ORDERED: LORazepam 2 MG/ML VIAL IVP ONE (20:20)
--- NOTE | 2018-12-23 21:10 | NUR ---
PT IS MORE CALM, AND EATING FOOD. HOB ELEVATED. SAFETY PRECAUTIONS IN PLACE.
--- NOTE | 2018-12-23 21:15 | NUR ---
PT PULLED OUT IV, BLEEDING CONTROLLED, PRESSURE AND BANDAGE APPLIED. PT IS SCREAMING FOR HIS MOM, COMFORT MEASURE AND SAFETY PRECAUTIONS PROVIDED.
--- NOTE | 2018-12-23 23:35 | NUR ---
PT ASKED FOR WATER, WHEN WALKED BACK INTO ROOM PT WAS DRINKING A 50 ML BOTTLE OF ARASELI, REMOVED 2 50ML BOTTLE FULL OF ARASELI FROM PT COAT. GAVE BOTTLE TO CHARGE NURSE.
--- NOTE | 2018-12-24 00:04 | NUR ---
PT IS REQUESTING TO GO HOME. CALL TO [id number] FROM CONTACT INFORMATION ON FILE, HE IS NOT ABLE TO PROVIDE THE PT W/ A RIDE AT THIS TIME. PT STATED I CAN CALL SISTER AND INFORM HER OF HIS CARE WHILE IN THE ER AND WANT HER TO PICK HIM UP. --PT STATES SISTERS NAME IS JEREMY SALEH; [phone] --CALL TO NUMBER AND RECORDING IS PT NAME ON VOICEMAIL.
--- NOTE | 2018-12-24 00:40 | NUR ---
SECURITY AT BEDSIDE, PT URINATED IN ROOM AFTER ATEMPS TO USE URINAL OR ASSITANCE AMBULATING TO BR.
--- NOTE | 2018-12-24 02:30 | NUR ---
Patient appears to be resting comfortably in bed. Vital Signs within normal limits. Respirations even and unlabored.
--- NOTE | 2018-12-24 04:09 | NUR ---
Patient discharged with v/s stable. Written and verbal after care instructions given and explained. Patient verbalized understanding. Ambulatory with steady gait. All questions addressed prior to discharge. Advised to follow up with PMD. Bus pass provided to patient.
[2018-12-24 04:38] VITALS: BP 110/71
== END 2018-12-24 04:09 | disposition home or self-care (01) ==
LOC: MED 19:11
DX: F10.129 Alcohol abuse with intoxication, unspecified (principal); M25.561 Pain in right knee; E11.9 Type 2 diabetes mellitus without complications; I10 Essential (primary) hypertension; Z79.82 Long term (current) use of aspirin; Z79.84 Long term (current) use of oral hypoglycemic drugs; Z79.899 Other long term (current) drug therapy; Z91.018 Allergy to other foods
CPT/HCPCS: 36415; 96374; 96375; 99283; G0482; J1885; J2060; J7030

== ENCOUNTER 2020-07-02 19:04 | Emergency (ER) | payer OTHER ==
[~2020-07-02] VITALS: Ht 177.8 cm; Wt 73.9 kg
[~2020-07-02 19:04] MED LIST changes: -ASPI-1718 PO; +ASPI-1822 PO
[2020-07-02 19:21] VITALS: BP 129/73
--- NOTE | 2020-07-02 19:41 | NUR ---
50 Y/O M PRESENTS TO ED C/O ACID REFLUX X 6 DAYS ACCOMPANIED BY DIARRHEA. PT STATES THAT HE NORMALLY TAKES OMEPREZOLE BUT THINKS THAT "HE RAN OUT OF IT." PT STATES THAT HE TOOK A WHOLE BOTTLE OF TUMS TODAY WITH NO RELIEF, WELL ANTACID WITH GAS RELIEF AND STILL NO RELIEF. PT STATES THAT THE ANTACID WITH GAS RELIEF MEDICATION MADE HIM HAVE DIARRHEA SO HE STOPPED TAKING IT. DENIES N/V/FEVER. VSS. BED LOCKED AND IN LOWEST POSITION, SIDE RAIL UP X1. WILL CONTINUE TO MONITOR. MED HX: DM2, HTN NKA
[2020-07-02] MEDS ORDERED: SIMETHICONE 40 MG/0.6 ML PO ONE (20:00)
[2020-07-02] MEDS ORDERED: DICYCLOMINE HCL LIQUID 20 MG, ALUMINUM HYD/MAG/SIMETHICONE 30 ML, LIDOCAINE VISCOUS 2% ... PO ONE ×6 (20:00→21:25)
[2020-07-02] MEDS ORDERED: FAMOTIDINE 20 MG TAB PO ONE (20:00)
--- NOTE | 2020-07-02 20:00 | NUR ---
RAD AT BEDSIDE.
[2020-07-02] MEDS ORDERED: LIDOCAINE VISCOUS 2% 20 ML UDC ONE ×2 (20:03→21:26)
[2020-07-02] MEDS ORDERED: ALUMINUM HYD/MAG/SIMETHICONE 30 ML UDC ONE ×2 (20:03→21:27)
[2020-07-02] MEDS ORDERED: DICYCLOMINE HCL LIQUID 10 MG/5 ML UDC ONE ×2 (20:03→21:27)
--- NOTE | 2020-07-02 20:14 | NUR ---
LAB AT BEDSIDE
[2020-07-02 20:23] LABS: BASOPHILS % (AUTO) 0.7 % (0.0-2.0); EOSINOPHILS # (AUTO) 0.2 K/uL (0-0.4); EOSINOPHILS % (AUTO) 3.8 % (0.0-4.0); HEMATOCRIT 37.6 % (36-52); HEMOGLOBIN 12.3 g/dL (12.0-18.0); LYMPHOCYTES # (AUTO) 1.9 K/uL (2.0-11.5); LYMPHOCYTES % (AUTO) 32.3 % (20.5-51.1); MEAN CORPUSCULAR HEMOGLOBIN 30 pg (27-31); MEAN CORPUSCULAR HGB CONC 33 g/dL (33-37); MEAN CORPUSCULAR VOLUME 90.5 fL (80-94); MONOCYTES # (AUTO) 0.6 K/uL (0.8-1.0); MONOCYTES % (AUTO) 10.6 % (1.7-9.3); NEUTROPHILS # (AUTO) 3.1 K/uL (1.8-7.7); NEUTROPHILS % (AUTO) 52.6 % (42.2-75.2); PLATELET COUNT (AUTO) 259 K/uL (140-450); RED BLOOD CELL COUNT(AUTO) 4.15 MIL/uL (4.20-6.10); RED CELL DISTRIBUTION WIDTH 13.3 % (11.6-13.7); WHITE BLOOD COUNT (AUTO) 5.9 K/uL (4.8-10.8)
[2020-07-02 20:41] LABS: ALBUMIN 4.3 g/dL (3.4-5.0); ANION GAP 11.8 (8-16); CARBON DIOXIDE 33.2 mmol/L (21-32); CREATININE 1.1 mg/dL (0.6-1.3); TOTAL BILIRUBIN 0.4 mg/dL (0.0-1.0)
--- NOTE | 2020-07-02 20:49 | NUR ---
critical lab value of calcium 13.[address] Chavez.
[2020-07-02] MEDS ORDERED: NACL 0.9% 1,000 ML IV ONE (21:15)
[2020-07-02 21:40] VITALS: BP 129/73
--- NOTE | 2020-07-02 21:40 | NUR ---
Patient does not wish to proceed with medical care recommended by DR. BUTTERFIELD. Patient given information related to possible complications, up to and including , which could occur as a result of leaving hospital at this time. Patient verbalizes understanding of risks involved leaving against medical advice. Patient has signed AMA form.
== END 2020-07-02 21:40 | disposition left against medical advice (07) ==
LOC: MED 19:04
DX: K21.9 Gastro-esophageal reflux disease without esophagitis (principal); E83.52 Hypercalcemia; R07.9 Chest pain, unspecified; L98.8 Other specified disorders of the skin and subcutaneous tissue; E11.9 Type 2 diabetes mellitus without complications; I10 Essential (primary) hypertension; Z79.899 Other long term (current) drug therapy; Z79.82 Long term (current) use of aspirin
CPT/HCPCS: 36415; 71045; 80053; 83690; 84484; 85025; 93005; 99285; Q0092

== ENCOUNTER 2020-10-04 11:18 | Emergency (ER) | payer OTHER ==
[~2020-10-04] VITALS: Ht 175.3 cm; Wt 74.8 kg
[2020-10-04 11:34] VITALS: BP 109/98
--- NOTE | 2020-10-04 11:40 | NUR ---
C/O SUBJECTIVE FEVER, BODY ACHE X LAST NIGHT . COVID TESTED 09/26/20 : NEGATIVE RESULT. MED HX: DM
--- NOTE | 2020-10-04 12:05 | NUR ---
Covid swab collected and walked to lab
--- NOTE | 2020-10-04 13:16 | NUR ---
Patient discharged with v/s stable. Written and verbal after care instructions given and explained. Patient verbalized understanding. Ambulatory with steady gait. All questions addressed prior to discharge. Advised to follow up with PMD.
[2020-10-04 13:17] VITALS: BP 109/98
== END 2020-10-04 13:16 | disposition home or self-care (01) ==
LOC: MED 11:18
DX: R50.9 Fever, unspecified (principal); R10.9 Unspecified abdominal pain; E11.9 Type 2 diabetes mellitus without complications; K21.9 Gastro-esophageal reflux disease without esophagitis; I10 Essential (primary) hypertension; Z79.84 Long term (current) use of oral hypoglycemic drugs; Z79.899 Other long term (current) drug therapy; Z79.82 Long term (current) use of aspirin; Z91.09 Other allergy status, other than to drugs and biological substances
CPT/HCPCS: 71045; 99284

== ENCOUNTER 2021-09-09 21:19 | Emergency (ER) | payer OTHER ==
[~2021-09-09] VITALS: Ht 175.3 cm; Wt 79.4 kg
[2021-09-09 21:32] VITALS: BP 124/68
--- NOTE | 2021-09-09 21:39 | NUR ---
PATIENT SENT TO [facility] AMBUL[facility]ORY
--- NOTE | 2021-09-09 21:56 | NUR ---
PATIENT AMBULATED TO BED 12
--- NOTE | 2021-09-09 22:05 | NUR ---
RECEIVED PT I BED 12 WITH C/O LEFT TESTICULAR PAIN THAT STARTED 1999 TODAY. DENIES TAKING PAIN MEDICATION. UNABLE TO GIVE UA AT THIS TIME. IS DRINKING SOME WATER. PMH: DM, HTN NKA
[2021-09-09] MEDS ORDERED: IBUPROFEN 800 MG TAB PO ONE (23:20)
[2021-09-09 23:28] LABS: APPEARANCE,URINE CLEAR (CLEAR); BILIRUBIN,URINE NEGATIVE (NEGATIVE); BLOOD, URINE NEGATIVE (NEGATIVE); COLOR,URINE YELLOW (YELLOW); LEUKOCYTE ESTERASE ,URINE NEGATIVE (NEGATIVE); NITRITE, URINE NEGATIVE (NEGATIVE); PH,URINE 7.5 (5.0-9.0); UGLUCOSE 1+ (NEGATIVE)
[2021-09-10 00:25] LABS: RBC,URINE NONE SEEN /HPF (0-5); WBC,URINE NONE SEEN /HPF (0-5)
[2021-09-10 01:00] VITALS: BP 118/72
[2021-09-10] MEDS ORDERED: IBUP-2218 PO (01:00)
[2021-09-10] MEDS ORDERED: LEVO-315 PO (01:00)
[2021-09-10] MEDS ORDERED: levoFLOXacin 500 MG TAB PO ONE (01:05)
== END 2021-09-10 01:09 | disposition home or self-care (01) ==
LOC: MED 21:19
DX: N50.82 Scrotal pain (principal); E11.9 Type 2 diabetes mellitus without complications; I10 Essential (primary) hypertension; K21.9 Gastro-esophageal reflux disease without esophagitis; F17.200 Nicotine dependence, unspecified, uncomplicated; Z79.899 Other long term (current) drug therapy; Z79.82 Long term (current) use of aspirin; Z91.018 Allergy to other foods
CPT/HCPCS: 76870; 81001; 99284; Q0092; 81002

== ENCOUNTER 2021-09-30 16:52 | Emergency (ER) | payer OTHER ==
[~2021-09-30] VITALS: Ht 175.3 cm; Wt 75.3 kg
[~2021-09-30 16:52] MED LIST changes: +IBUP-2218 PO; +LEVO-315 PO
[2021-09-30 17:04] VITALS: BP 97/64
--- NOTE | 2021-09-30 17:11 | NUR ---
URINE SPECIMEN CUP GIVEN TO PT. UNABLE TO PRODUCE URINE SAMPLE AT THIS TIME.
--- NOTE | 2021-09-30 18:54 | NUR ---
PT WHEELED TO [facility]
[2021-09-30 19:11] LABS: APPEARANCE,URINE CLEAR (CLEAR); BILIRUBIN,URINE NEGATIVE (NEGATIVE); BLOOD, URINE NEGATIVE (NEGATIVE); COLOR,URINE YELLOW (YELLOW); LEUKOCYTE ESTERASE ,URINE NEGATIVE (NEGATIVE); NITRITE, URINE NEGATIVE (NEGATIVE); UGLUCOSE NEGATIVE (NEGATIVE)
--- NOTE | 2021-09-30 19:11 | NUR ---
PT BROUGHT BACK FROM ULTRASOUND VIA W/C.
[2021-09-30] MEDS ORDERED: IBUP-2213 PO (21:45)
[2021-09-30 21:56] VITALS: BP 97/64
== END 2021-09-30 21:57 | disposition home or self-care (01) ==
LOC: MED 16:52
DX: N50.811 Right testicular pain (principal); E11.9 Type 2 diabetes mellitus without complications; K21.9 Gastro-esophageal reflux disease without esophagitis; I10 Essential (primary) hypertension; Z91.018 Allergy to other foods
CPT/HCPCS: 76870; 81003; 99284; Q0092

== ENCOUNTER 2021-10-26 02:03 | Emergency (ER) | payer OTHER ==
[~2021-10-26] VITALS: Ht 175.3 cm; Wt 68.0 kg
[~2021-10-26 02:03] MED LIST changes: +IBUP-2213 PO
[2021-10-26 02:04] VITALS: BP 134/72
--- NOTE | 2021-10-26 02:04 | NUR ---
SONYA WILCOX. TAKEN TO CHAIR B
--- NOTE | 2021-10-26 02:48 | NUR ---
AT DISCHARGE PT REQUESTING PRILOSEC 40MG. DR. HALEY GAVE VERBAL ORDER FOR PEPCID 40MG PO. ORDER CARRIED OUT.
[2021-10-26] MEDS ORDERED: FAMOTIDINE 20 MG TAB ONE (02:51)
--- NOTE | 2021-10-26 02:54 | NUR ---
PATIENT [facility] POLICE DEPT. PATIENT EXAMINED BY DR. HALEY. PATIENT MEDICALLY CLEARED AND RELEASED IN CUSTODY IN STABLE CONDITION. ORIGINAL PRE-BOOK FORM GIVEN TO OFFICER SANDY, #343.
[2021-10-26] MEDS ORDERED: FAMOTIDINE 20 MG TAB PO ONE (02:55)
== END 2021-10-26 02:54 ==
LOC: MED 02:03
DX: S00.03XA Contusion of scalp, initial encounter (principal); Z20.822 Contact with and (suspected) exposure to COVID-19; W22.8XXA Striking against or struck by other objects, initial encounter; Y93.89 Activity, other specified; Y92.89 Other specified places as the place of occurrence of the external cause; Y99.8 Other external cause status
CPT/HCPCS: 99283

== ENCOUNTER 2021-10-27 00:58 | Emergency (ER) | payer OTHER ==
[~2021-10-27] VITALS: Ht 175.3 cm; Wt 68.0 kg
[2021-10-27 01:08] VITALS: BP 129/80
== END 2021-10-27 03:25 | disposition home or self-care (01) ==
LOC: MED 00:58
DX: S06.0X9A Concussion with loss of consciousness of unspecified duration, initial encounter (principal); E11.9 Type 2 diabetes mellitus without complications; K21.9 Gastro-esophageal reflux disease without esophagitis; I10 Essential (primary) hypertension; Z79.899 Other long term (current) drug therapy; Z91.018 Allergy to other foods; Z79.84 Long term (current) use of oral hypoglycemic drugs; Z79.82 Long term (current) use of aspirin; W50.0XXA Accidental hit or strike by another person, initial encounter; Y93.89 Activity, other specified; Y92.89 Other specified places as the place of occurrence of the external cause; Y99.8 Other external cause status
CPT/HCPCS: 70450; 99284

== ENCOUNTER 2022-04-07 23:23 | Emergency (ER) | payer OTHER ==
[~2022-04-07] VITALS: Ht 175.3 cm; Wt 75.3 kg
[2022-04-07 23:31] VITALS: BP 137/83
--- NOTE | 2022-04-07 23:35 | NUR ---
Urban andujar in [facility] - 04/07/22 at 2335 by ALMAS PATIENT TO BED 6
--- NOTE | 2022-04-07 23:35 | NUR ---
PATIENT TO BED
--- NOTE | 2022-04-08 00:32 | NUR ---
patient discharged by ER .
== END 2022-04-08 00:32 | disposition home or self-care (01) ==
LOC: MED 23:23
DX: S09.90XA Unspecified injury of head, initial encounter (principal); E11.9 Type 2 diabetes mellitus without complications; K21.9 Gastro-esophageal reflux disease without esophagitis; I10 Essential (primary) hypertension; E78.5 Hyperlipidemia, unspecified; Z79.1 Long term (current) use of non-steroidal anti-inflammatories (NSAID); Z79.2 Long term (current) use of antibiotics; Z79.82 Long term (current) use of aspirin; Z79.899 Other long term (current) drug therapy; Z91.018 Allergy to other foods; Y08.89XA Assault by other specified means, initial encounter; Y93.89 Activity, other specified; Y92.89 Other specified places as the place of occurrence of the external cause; Y99.8 Other external cause status
CPT/HCPCS: 70450; 99284

== ENCOUNTER 2022-12-07 18:16 | Emergency (ER) | payer OTHER ==
[~2022-12-07] VITALS: Ht 177.8 cm; Wt 77.6 kg
[~2022-12-07 18:16] MED LIST changes: -LEVO-315 PO; +LEVO-481 PO; +SIMV-371 PO; -SIMV10TA1 PO
[2022-12-07 18:38] VITALS: BP 119/71
[2022-12-07] MEDS ORDERED: ROBAC PO (20:35)
[2022-12-07] MEDS ORDERED: ALBU0.0912 IH (20:35)
[2022-12-07] MEDS ORDERED: PRON INH ×2 (20:35→20:45)
[2022-12-07] MEDS ORDERED: DEXT-430 PO (20:45)
[2022-12-07 20:54] VITALS: BP 119/71
--- NOTE | 2022-12-07 20:54 | NUR ---
Patient discharged with v/s stable. Written and verbal after care instructions given and explained. Patient alert, oriented and verbalized understanding of instructions. Ambulatory with steady gait. All questions addressed prior to discharge. ID band removed. Patient advised to follow up with PMD. Rx of ALBUTEROL, MUCINEX, given. Patient educated on indication of medication including possible reaction and side effects. Opportunity to ask questions provided and answered.
== END 2022-12-07 20:54 | disposition home or self-care (01) ==
LOC: MED 18:16
DX: J20.8 Acute bronchitis due to other specified organisms (principal); R06.02 Shortness of breath; E11.9 Type 2 diabetes mellitus without complications; K21.9 Gastro-esophageal reflux disease without esophagitis; I10 Essential (primary) hypertension; Z79.899 Other long term (current) drug therapy; Z79.82 Long term (current) use of aspirin; Z91.018 Allergy to other foods
CPT/HCPCS: 82948; 99283

== ENCOUNTER 2024-03-14 19:45 | Emergency (ER) | payer OTHER ==
[~2024-03-14] VITALS: Ht 180.3 cm; Wt 72.6 kg
[~2024-03-14 19:45] MED LIST changes: +ALBU0.0912 IH; +DEXT-430 PO; +MONT-72 PO; -MONT10TA35 PO; +PRON INH
[2024-03-14 19:57] VITALS: BP 93/48; PULSE 74; RESP 16; TEMP 98.2; O2SAT 99
[2024-03-14 20:02] VITALS: O2SAT 98
[2024-03-14 20:22] LABS: EOSINOPHILS # (AUTO) 0.2 K/uL (0-0.4); EOSINOPHILS % (AUTO) 3.4 % (0.0-4.0); HEMOGLOBIN 13.4 g/dL (12.0-18.0); LYMPHOCYTES # (AUTO) 2.2 K/uL (2.0-11.5); LYMPHOCYTES % (AUTO) 45.8 % (20.5-51.1); MEAN CORPUSCULAR HEMOGLOBIN 33 pg (27-31); MEAN CORPUSCULAR HGB CONC 35 g/dL (33-37); MEAN CORPUSCULAR VOLUME 92.8 fL (80-94); MONOCYTES # (AUTO) 0.5 K/uL (0.8-1.0); MONOCYTES % (AUTO) 9.4 % (1.7-9.3); NEUTROPHILS % (AUTO) 40.4 % (42.2-75.2); PLATELET COUNT (AUTO) 234 K/uL (140-450); RED CELL DISTRIBUTION WIDTH 12.6 % (11.6-13.7); WHITE BLOOD COUNT (AUTO) 4.9 K/uL (4.8-10.8)
[2024-03-14 20:37] LABS: ANION GAP 13.5 (8-16); CARBON DIOXIDE 28.3 mmol/L (21-32); CREATININE 1.1 mg/dL (0.6-1.3); POTASSIUM 3.8 mmol/L (3.5-5.1)
[2024-03-14] MEDS: KETOROLAC 30 MG/ML VIAL IM ONE (20:50)
[2024-03-14] MEDS ORDERED: PRED20TA5 PO (22:43)
[2024-03-14] MEDS ORDERED: AZIT250T4 PO (22:43)
[2024-03-14] MEDS ORDERED: ACET-10509 PO (22:43)
[2024-03-14] MEDS ORDERED: PROM118S5 PO (22:43)
[2024-03-14 23:03] VITALS: BP 94/48; PULSE 70; RESP 19; O2SAT 98
== END 2024-03-14 23:03 | disposition home or self-care (01) ==
LOC: MED 19:45
DX: J40 Bronchitis, not specified as acute or chronic (principal); E11.9 Type 2 diabetes mellitus without complications; I10 Essential (primary) hypertension; K21.9 Gastro-esophageal reflux disease without esophagitis; Z79.4 Long term (current) use of insulin; Z79.899 Other long term (current) drug therapy; Z91.018 Allergy to other foods
CPT/HCPCS: 36415; 71045; 80048; 84484; 85025; 93005; 96372; 99285; J1885

== ENCOUNTER 2024-04-03 23:06 | Emergency (ER) | payer OTHER ==
[~2024-04-03] VITALS: Ht 177.8 cm; Wt 77.1 kg
[~2024-04-03 23:06] MED LIST changes: +ACET-10509 PO; +AZIT250T4 PO; +PRED20TA5 PO; +PROM118S5 PO
[2024-04-03 23:20] VITALS: BP 120/71; PULSE 84; RESP 16; TEMP 97.7; O2SAT 100
[2024-04-04] MEDS: ACETAMINOPHEN EXTRA STRENGTH 500 MG TAB PO ONE (02:05)
[2024-04-04] MEDS: KETOROLAC 30 MG/ML VIAL IM ONE (02:07)
== END 2024-04-04 02:13 | disposition home or self-care (01) ==
LOC: MED 23:06
DX: G89.29 Other chronic pain (principal); M25.512 Pain in left shoulder; M54.2 Cervicalgia; J45.909 Unspecified asthma, uncomplicated; K21.9 Gastro-esophageal reflux disease without esophagitis; I10 Essential (primary) hypertension; E11.9 Type 2 diabetes mellitus without complications; Z79.1 Long term (current) use of non-steroidal anti-inflammatories (NSAID); Z79.84 Long term (current) use of oral hypoglycemic drugs; Z79.82 Long term (current) use of aspirin; Z79.2 Long term (current) use of antibiotics; Z79.899 Other long term (current) drug therapy; Z91.018 Allergy to other foods
CPT/HCPCS: 96372; 99283; J1885